=== PATIENT | male | born 1980 | race Caucasian/White ===

== ENCOUNTER 2017-07-13 08:53 | Emergency (ER) | payer SELFPAY ==
[~2017-07-13] VITALS: Ht 182.9 cm; Wt 63.5 kg
[~2017-07-13 08:53] MED LIST: LORTAB 5/500 501 TAB PO; PREDNISONE 10MG10 MG PO
--- NOTE | 2017-07-13 09:43 | Emergency Room Report ---
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 N Clinical Suspician of Infection? N Mental Status: 1 - Regular (Normal Baseline) Sepsis Risk:Low Sepsis Risk Have you (or family members/close friends) recently traveled outside the [place]? N If Yes, where/when: Have you had exposure to infectious disease within the past month? N TB? Other? Specify: Source patient, RN notes reviewed, family, RN/MD Exam Limitations no limitations Comment This is a 36-year-old male patient brought to the ER by police department, in custody, prior to incarceration, for medical clearance. Police was called by neighborhood noticed patient arriving around, topless, hallucinating, acting confused, all night long. Upon police arrival the patient is alleging that he has been watched by FBI agents on rooftops, that his neighbor has been spying on him, that there is to smoke coming out of his shoes, etc. ALLERGIES Coded Allergies: No Known Allergies (07/13/17) Home Medications Reported Medications No Known Home Medications History Medical History General CAD? No Angina: No [place]: No Hypertension? No Hyperlipidemia? No CHF? No DVT? No PE? No COPD? No Asthma? No Anemia? No GERD? No Gastric ulcers? No GI Bleed? No Hernia? No Thyroid Problems? No Hypothyroidism? No CVA? No Seizures? No Diabetes? No Renal Insuffiency? No End Stage Renal Disease? No UTI? No Stones? No GB Disease: No Nephritic Syndrome? No Asplenia? No Hepatitis? No Sickle Cell Disease? No Arthritis? No Migraines? No Cataracts? No Glaucoma? No MRSA? No HIV? No TB? No Anxiety? No Depression? No Cancer? No More? No Immunization Hx DT/Tetanus 1-4 YRS Surgical Hx Previous Surgery?Y ORAL SURGERY Social History Smoking Hx Smoker: Current Every Day Smoker Tobacco: Yes Type Cigarettes Packs/day < 1 Pack Alcohol Alcohol: Yes Review of Systems All Other Systems Reviewed and Negative Psychiatric/Neurological other (psychosis/hallucinations) Physical Exam Vital Signs Vital Signs Date Time Temp Pulse Resp B/P Pulse O2 O2 Flow FiO2 Ox Delivery Rate 07/13 1209 88 20 145/95 99 07/13 1128 89 20 142/85 98 07/13 1029 89 20 142/85 94 07/13 0950 62 20 153/100 100 07/13 0858 98.9 62 18 158/109 91 General Appearance normal appearance, WD/WN, no acute distress, however confused Eye Exam - bilateral eye normal exam, bilateral eye PERRL, bilateral eye EOMI Ear, Nose, Throat hearing grossly normal, normal ENT inspection Neck normal inspection, non-tender, supple, full range of motion Respiratory Status Yes: trachea midline, chest symmetrical, non tender chest. No: respiratory distress. Lung Sounds bilateral: normal breath sounds, lungs clear. 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 No Comment 11:30-vision stated that he does not know the date, the time, despite being aware of location and purpose of his emergency room visit at this time. There is no significant change in patient's mental status since arrival. 11:40-discussed with Dr. Gama, advised the patient's findings and presentation , declined admission, but recommended transferred to [facility] where both his medical and psychiatric needs can be addressed. 11:48-call initiated with transfer center regarding the patient's need to be transferred for additional care. 11:52am-case d/w Dr Walton, advised of patient's presentation findings, who recommended patient to be transferred to [facility]. 11:55am-case d/w Dr Gee, advised of the above. Dr. Gee recommended patient to be kept in our emergency room, continued IV hydration, and reassess him in 2 hours, for changes in mental status. If no better, he can be sent to assisted for a local facility, if no improvement, he will accept the transfer at that time. 12:15pm-care transferred to Dr. Vega at 12:15pm, informed of the above. Results/Orders Laboratory Tests 07/13/17 1015: Opiates Screen NEGATIVE, Urine Methadone Screen NEGATIVE, Barbiturates NEGATIVE, Phencyclidine Screen NEGATIVE, Amphetamines Screen POSITIVE H, Benzodiazepines Screen NEGATIVE, Cocaine Screen POSITIVE H, Marijuana (THC) Screen POSITIVE H, Urine Color DK YELLOW, Urine Appearance SL CLOUDY, Urine pH 6.0, Ur Specific [place] >= 1.030, Urine Protein 2+ H, Urine Ketones TRACE H, Urine Blood 1+ H , Urine Nitrate NEGATIVE, Urine Bilirubin 1+ H, Urine Urobilinogen 1.0, Ur Leukocyte Esterase NEGATIVE, Urine RBC OCC, Urine WBC 5-10, Urine Bacteria 2+, Hyaline Casts 10-20, Urine Mucus 2+, Urine Sperm 1+, Urine Glucose NEGATIVE 07/13/17 0950: TSH 0.39, Free T4 Index 9.5, Thyroxine (T4) 10.0, T3 Uptake 38, Alcohols 0 07/13/17 0950: Sodium 131 L, Potassium 3.7, Chloride 94 L, Carbon Dioxide 26, BUN 27 H, Creatinine 2.0 H, Estimated Creat Clear 46 L, Estimated GFR (MDRD) 38, Glucose 130 H, Calcium 10.0, Total Bilirubin 1.5 H, AST 57 H, ALT 38, Alkaline Phosphatase 95, Total Protein 9.5 H, Albumin 5.0, Globulin 4.5 H, Albumin/ Globulin Ratio 1.1, WBC 18.1 H, RBC 5.24, Hgb 16.9, Hct 48.9, MCV 93.3, RDW 12.6, Plt Count 268, MPV 7.2 L, Gran % 87.2 H, Gran # 15.8 H, Total Counted 100, Lymphocytes % 5.5 L, Monocytes % 6.2, Eosinophils % 0.8, Basophils % 0.3, Neutrophils 84 H, Lymphocytes (Manual) 7 L, Lymphocytes # 1.0, Monocytes ( Manual) 9, Monocytes # 1.1 H, Eosinophils # 0.1, Basophils # 0.1, Platelet Estimate NORMAL, PUBS MCHC 34.6, MCH 32.3 H, Salicylates 3.1, Acetaminophen 0 L Current Medication Orders Sig/Mary Start time Last Medication Dose Route Stop Time Status Admin Sodium Chloride 1,000 ML .Q1H1M 07/13 1215 AC 07/13 IV 07/13 1315 1212 Sodium Chloride 10 ML PRN PRN 07/13 1215 AC IV 07/14 1210 Sodium Chloride 1,000 ML .STK-MED ONE 07/13 1212 DC IV Sodium Chloride 1,000 ML .STK-MED ONE 07/13 1126 DC IV Sodium Chloride 1,000 ML .Q1H1M 07/13 1045 DC 07/13 IV 07/13 1145 1114 Sodium Chloride 10 ML PRN PRN 07/13 1045 AC IV 07/14 1031 Sodium Chloride 1,000 ML .Q1H1M 07/13 1030 DC 07/13 IV 07/13 1130 1026 Sodium Chloride 10 ML PRN PRN 07/13 1030 AC IV 07/14 1017 Sodium Chloride 1,000 ML .STK-MED ONE 07/13 1025 DC IV Sodium Chloride 10 ML PRN PRN 07/13 0915 AC IV 07/14 0910 Orders Procedure Date/time Status DIET-NOTHING BY MOUTH 07/[address] HEAD REQ 07/13 1018 Complete CULTURE, URINE 07/13 1015 Active DIFFERENTIAL-WBC 07/13 0950 Complete THYROID PANEL 2 (WITH TSH) 07/13 0920 Complete ALCOHOL 07/13 0920 Complete SALICYLATE 07/13 0919 Complete Acetaminophen 07/13 0919 Complete IV SALINE LOCK 07/13 0910 Active URINALYSIS/COMPLETE 07/13 0910 Complete DRUG ABUSE SCREEN (10) 07/13 0910 Complete CBC WITH AUTO DIFF 07/13 0910 Complete CHEM 12 PROFILE 07/13 0910 Complete XRAY/CT/US XRAY/CT/US CT head CT interpretation by discussed w/radiologist CT Results normal/NAD (no ICH), no fracture seen Departure Departure Time of Disposition 1153 Disposition DC/XFER from ER to [facility] Clinical Impression Primary Impression: Change in mental status Qualifiers: Altered mental status type: unspecified Qualified Code: R41.82 - Altered mental status, unspecified Secondary Impressions: Acute renal failure Qualifiers: Acute renal failure type: unspecified Qualified Code: N17.9 - Acute kidney failure, unspecified Amphetamine abuse Cocaine abuse Hallucinations Marijuana abuse Condition STABLE Prescriptions Current Visit Scripts No Known Home Medications ED Critical Care Critical Care No at 1218
--- NOTE | 2017-07-13 09:43 | Emergency Room Report ---
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 N Clinical Suspician of Infection? N Mental Status: 1 - Regular (Normal Baseline) Sepsis Risk:Low Sepsis Risk Have you (or family members/close friends) recently traveled outside the [place]? N If Yes, where/when: Have you had exposure to infectious disease within the past month? N TB? Other? Specify: Source patient, RN notes reviewed, family, RN/MD Exam Limitations no limitations Comment This is a 36-year-old male patient brought to the ER by police department, in custody, prior to incarceration, for medical clearance. Police was called by neighborhood noticed patient arriving around, topless, hallucinating, acting confused, all night long. Upon police arrival the patient is alleging that he has been watched by FBI agents on rooftops, that his neighbor has been spying on him, that there is to smoke coming out of his shoes, etc. ALLERGIES Coded Allergies: No Known Allergies (07/13/17) Home Medications Reported Medications No Known Home Medications History Medical History General CAD? No Angina: No [place]: No Hypertension? No Hyperlipidemia? No CHF? No DVT? No PE? No COPD? No Asthma? No Anemia? No GERD? No Gastric ulcers? No GI Bleed? No Hernia? No Thyroid Problems? No Hypothyroidism? No CVA? No Seizures? No Diabetes? No Renal Insuffiency? No End Stage Renal Disease? No UTI? No Stones? No GB Disease: No Nephritic Syndrome? No Asplenia? No Hepatitis? No Sickle Cell Disease? No Arthritis? No Migraines? No Cataracts? No Glaucoma? No MRSA? No HIV? No TB? No Anxiety? No Depression? No Cancer? No More? No Immunization Hx DT/Tetanus 1-4 YRS Surgical Hx Previous Surgery?Y ORAL SURGERY Social History Smoking Hx Smoker: Current Every Day Smoker Tobacco: Yes Type Cigarettes Packs/day < 1 Pack Alcohol Alcohol: Yes Review of Systems All Other Systems Reviewed and Negative Psychiatric/Neurological other (psychosis/hallucinations) Physical Exam Vital Signs Vital Signs Date Time Temp Pulse Resp B/P Pulse O2 O2 Flow FiO2 Ox Delivery Rate 07/13 1209 88 20 145/95 99 07/13 1128 89 20 142/85 98 07/13 1029 89 20 142/85 94 07/13 0950 62 20 153/100 100 07/13 0858 98.9 62 18 158/109 91 General Appearance normal appearance, WD/WN, no acute distress, however confused Eye Exam - bilateral eye normal exam, bilateral eye PERRL, bilateral eye EOMI Ear, Nose, Throat hearing grossly normal, normal ENT inspection Neck normal inspection, non-tender, supple, full range of motion Respiratory Status Yes: trachea midline, chest symmetrical, non tender chest. No: respiratory distress. Lung Sounds bilateral: normal breath sounds, lungs clear. 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 No Comment 11:30-vision stated that he does not know the date, the time, despite being aware of location and purpose of his emergency room visit at this time. There is no significant change in patient's mental status since arrival. 11:40-discussed with Dr. Gama, advised the patient's findings and presentation , declined admission, but recommended transferred to [facility] where both his medical and psychiatric needs can be addressed. 11:48-call initiated with transfer center regarding the patient's need to be transferred for additional care. 11:52am-case d/w Dr Walton, advised of patient's presentation findings, who recommended patient to be transferred to [facility]. 11:55am-case d/w Dr Gee, advised of the above. Dr. Gee recommended patient to be kept in our emergency room, continued IV hydration, and reassess him in 2 hours, for changes in mental status. If no better, he can be sent to prison for a local facility, if no improvement, he will accept the transfer at that time. 12:15pm-care transferred to Dr. Vega at 12:15pm, informed of the above. Results/Orders Laboratory Tests 07/13/17 1015: Opiates Screen NEGATIVE, Urine Methadone Screen NEGATIVE, Barbiturates NEGATIVE, Phencyclidine Screen NEGATIVE, Amphetamines Screen POSITIVE H, Benzodiazepines Screen NEGATIVE, Cocaine Screen POSITIVE H, Marijuana (THC) Screen POSITIVE H, Urine Color DK YELLOW, Urine Appearance SL CLOUDY, Urine pH 6.0, Ur Specific [place] >= 1.030, Urine Protein 2+ H, Urine Ketones TRACE H, Urine Blood 1+ H , Urine Nitrate NEGATIVE, Urine Bilirubin 1+ H, Urine Urobilinogen 1.0, Ur Leukocyte Esterase NEGATIVE, Urine RBC OCC, Urine WBC 5-10, Urine Bacteria 2+, Hyaline Casts 10-20, Urine Mucus 2+, Urine Sperm 1+, Urine Glucose NEGATIVE 07/13/17 0950: TSH 0.39, Free T4 Index 9.5, Thyroxine (T4) 10.0, T3 Uptake 38, Alcohols 0 07/13/17 0950: Sodium 131 L, Potassium 3.7, Chloride 94 L, Carbon Dioxide 26, BUN 27 H, Creatinine 2.0 H, Estimated Creat Clear 46 L, Estimated GFR (MDRD) 38, Glucose 130 H, Calcium 10.0, Total Bilirubin 1.5 H, AST 57 H, ALT 38, Alkaline Phosphatase 95, Total Protein 9.5 H, Albumin 5.0, Globulin 4.5 H, Albumin/ Globulin Ratio 1.1, WBC 18.1 H, RBC 5.24, Hgb 16.9, Hct 48.9, MCV 93.3, RDW 12.6, Plt Count 268, MPV 7.2 L, Gran % 87.2 H, Gran # 15.8 H, Total Counted 100, Lymphocytes % 5.5 L, Monocytes % 6.2, Eosinophils % 0.8, Basophils % 0.3, Neutrophils 84 H, Lymphocytes (Manual) 7 L, Lymphocytes # 1.0, Monocytes ( Manual) 9, Monocytes # 1.1 H, Eosinophils # 0.1, Basophils # 0.1, Platelet Estimate NORMAL, PUBS MCHC 34.6, MCH 32.3 H, Salicylates 3.1, Acetaminophen 0 L Current Medication Orders Sig/Mary Start time Last Medication Dose Route Stop Time Status Admin Sodium Chloride 1,000 ML .Q1H1M 07/13 1215 AC 07/13 IV 07/13 1315 1212 Sodium Chloride 10 ML PRN PRN 07/13 1215 AC IV 07/14 1210 Sodium Chloride 1,000 ML .STK-MED ONE 07/13 1212 DC IV Sodium Chloride 1,000 ML .STK-MED ONE 07/13 1126 DC IV Sodium Chloride 1,000 ML .Q1H1M 07/13 1045 DC 07/13 IV 07/13 1145 1114 Sodium Chloride 10 ML PRN PRN 07/13 1045 AC IV 07/14 1031 Sodium Chloride 1,000 ML .Q1H1M 07/13 1030 DC 07/13 IV 07/13 1130 1026 Sodium Chloride 10 ML PRN PRN 07/13 1030 AC IV 07/14 1017 Sodium Chloride 1,000 ML .STK-MED ONE 07/13 1025 DC IV Sodium Chloride 10 ML PRN PRN 07/13 0915 AC IV 07/14 0910 Orders Procedure Date/time Status DIET-NOTHING BY MOUTH 07/[address] HEAD REQ 07/13 1018 Complete CULTURE, URINE 07/13 1015 Active DIFFERENTIAL-WBC 07/13 0950 Complete THYROID PANEL 2 (WITH TSH) 07/13 0920 Complete ALCOHOL 07/13 0920 Complete SALICYLATE 07/13 0919 Complete Acetaminophen 07/13 0919 Complete IV SALINE LOCK 07/13 0910 Active URINALYSIS/COMPLETE 07/13 0910 Complete DRUG ABUSE SCREEN (10) 07/13 0910 Complete CBC WITH AUTO DIFF 07/13 0910 Complete CHEM 12 PROFILE 07/13 0910 Complete XRAY/CT/US XRAY/CT/US CT head CT interpretation by discussed w/radiologist CT Results normal/NAD (no ICH), no fracture seen Departure Departure Time of Disposition 1153 Disposition DC/XFER from ER to [facility] Clinical Impression Primary Impression: Change in mental status Qualifiers: Altered mental status type: unspecified Qualified Code: R41.82 - Altered mental status, unspecified Secondary Impressions: Acute renal failure Qualifiers: Acute renal failure type: unspecified Qualified Code: N17.9 - Acute kidney failure, unspecified Amphetamine abuse Cocaine abuse Hallucinations Marijuana abuse Condition STABLE Prescriptions Current Visit Scripts No Known Home Medications ED Critical Care Critical Care No at 1210
[2017-07-13 09:56] LABS: HEMOGLOBIN 16.9 g/dL (14.1-18.0); LYMPH % 5.5 % (10-50)
[2017-07-13 10:16] LABS: FREE THYROXIN INDEX 9.5 ug/dl (5.93-13.13)
[2017-07-13 10:20] LABS: URINE BLOOD 1+ (NEG)
[2017-07-13 10:35] LABS: NEUTROPHILS 84 % (42-76)
[2017-07-13 10:40] LABS: URINE BILIRUBIN - DIPSTICK 1+ (NEG)
[2017-07-13 10:49] LABS: AMPHETAMINES/METAMPHETAMINES POSITIVE ng/mL (<1000)
--- NOTE | 2017-07-13 11:17 | RADIOLOGY REPORT PS360 ---
CT HEAD WITHOUT CONTRAST CT BONE WINDOWS included ORDERING PHYSICIAN : Rodney Bolden MD PATIENT AGE: 36 years GENDER: Male PROCEDURE: Routine axial images headwithout contrast. Brain & bone windows HISTORY: HALLUCINATIONS COMPARISON: None for comparison FINDINGS: No acute intracranial findings. No hemorrhage. ( No mass effect or mass lesion. No subdural nor extra-axial collection. Ventricles & basal cisterns appear satisfactory. King & white matter patterns satisfactory. The posterior fossa appear satisfactory and unremarkable. The skull is intact. The limited visualized portions of the paranasal sinuses are fairly clear only noting mild mucosal thickening at the superior left maxillary sinus and posterior left ethmoid air cell region. Mastoid air cells, middle ear & IACs are unremarkable. IMPRESSION: No acute intracranial findings. Normal appearing brain on this noncontrast CT
[2017-07-13 12:50] LABS: LYMPH # 1.1 K/mm3 (0.7-4.5); LYMPH % 6.8 % (10-50)
[2017-07-13 12:58] LABS: HEMOGLOBIN 13.8 g/dL (14.1-18.0)
--- NOTE | 2017-07-13 14:08 | Emergency Room Report ---
History of Present Illness Time Seen by [id number] Presenting Problem in Triage Pt arrived:Walked Presenting Problem:MEDICAL CLEARANCE R/T POSSIBLE DRUG USE FOR [facility]. [facility] REPROTS PT WAS HALLUCINATING WHEN THEY FIRST ENCOUNTERED PT. 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 N Clinical Suspician of Infection? N Mental Status: 1 - Regular (Normal Baseline) Sepsis Risk:Low Sepsis Risk Have you (or family members/close friends) recently traveled outside the [place]? N If Yes, where/when: Have you had exposure to infectious disease within the past month? N TB? Other? Specify: 36 years old white male was brought by the police at 8:30 AM to [facility] ED because OF lesions and public intoxication. Patient had visual hallucinations and thought that a steam coming out of his shoes. Dr. Stevens the morning physician contacted zaheer Gee who recommended IV fluid therapy and observation. After 3 L of IV fluids the patient 's still hallucinating. He believes he is seeing his mother behind the curtain and there are letters wrote on his arms. I interviewed Mr. Mcqueen who reported that last time he was feeling normally was on Thursday at 3 PM and was drinking with his friend and he asked about his alcohol level was 0. He states that his friend might have given some drugs he does not recall their names. He asked about the drug levels which is not provided by the lab. The patient was alert and oriented 3 but he maintained to have visual and auditory hallucinations. His creatinine was down to 1.5 and his white count was 15. His lactic acid is 0.7. I will obtain blood cultures and was given IV antibiotics. His chest x-ray was normal and urinalysis was negative for infection. He does have a swollen LEFT lip and bad teeth. He lives by himself and he has not seen his mother for years, his brother is in drug rehab. Source patient, RN notes reviewed, family, police, old records, I reviewed old records done by Dr. Stevens from this morning. ALLERGIES Coded Allergies: No Known Allergies (07/13/17) Home Medications Reported Medications No Known Home Medications History Medical History General CAD? No Angina: No MT: No Hypertension? No Hyperlipidemia? No CHF? No DVT? No PE? No COPD? No Asthma? No Anemia? No GERD? No Gastric ulcers? No GI Bleed? No Hernia? No Thyroid Problems? No Hypothyroidism? No CVA? No Seizures? No Diabetes? No Renal Insuffiency? No End Stage Renal Disease? No UTI? No Stones? No GB Disease: No Nephritic Syndrome? No Asplenia? No Hepatitis? No Sickle Cell Disease? No Arthritis? No Migraines? No Cataracts? No Glaucoma? No MRSA? No HIV? No TB? No Anxiety? No Depression? No Cancer? No More? No Immunization Hx DT/Tetanus 1-4 YRS Surgical Hx Previous Surgery?Y ORAL SURGERY Social History Smoking Hx Smoker: Current Every Day Smoker Tobacco: Yes Type Cigarettes Packs/day < 1 Pack Alcohol Alcohol: Yes Review of Systems All Other Systems Reviewed and Negative Constitutional see HPI Eyes no symptoms reported ENT see HPI, dental caries (LEFT lower lip swelling), missing teeth. Respiratory no symptoms reported Cardiovascular no symptoms reported Gastrointestinal no symptoms reported Genitourinary no symptoms reported. Musculoskeletal no symptoms reported Skin see HPI (poison IV) Psychiatric/Neurological see HPI (hallucinations) Physical Exam Vital Signs Vital Signs Date Time Temp Pulse Resp B/P Pulse O2 O2 Flow FiO2 Ox Delivery Rate 07/13 1347 89 20 130/87 97 07/13 1209 88 20 145/95 99 07/13 1128 89 20 142/85 98 07/13 1029 89 20 142/85 94 07/13 0950 62 20 153/100 100 07/13 0858 98.9 62 18 158/109 91 Semi erect in resp distress withoput his shirt, his socks is covered in leaves. (Gary STEWART,[facility]) - WBC >12,000 or <4,000 or 10% bands? 2 or more SIRS Criteria Met? B/P:130/87 MAP:125 Creatinine >2.0? UA output<0.5ml/kg/hr for 2 hrs? Platelet count >100,000? Lactate >2.0mmol/1? INR >1.2 or PTT > than 60 sec? Evidence of Organ Dysfunction? Provider documented clinical suspician of infection? N Sepsis Criteria Count: 0 Sepsis Risk: Low Sepsis Risk General Appearance normal appearance, WD/WN Eye Exam - bilateral eye normal exam, bilateral eye PERRL, bilateral eye EOMI Ear, Nose, Throat dental caries, gingival disease, multiple broken teeth with dental caries, the LEFT lower lip is swollen and tender. Neck normal inspection, non-tender, supple, full range of motion, no midline spine tenderness Respiratory Status Yes: trachea midline, chest symmetrical, non tender chest. No: respiratory distress. Lung Sounds bilateral: normal breath sounds, lungs clear. Cardiovascular normal exam, regular rate/rhythm, no peripheral edema, no gallop, no JVD, no murmur, no rub, normal peripheral pulses Peripheral Pulses Pulses normal Yes Gastrointestinal normal bowel sounds, normal exam, non tender, soft, no organomegaly Back normal inspection, no CVA tenderness, no vertebral tenderness, no vertebral tenderness Extremities non-tender, normal range of motion, normal inspection Strength 5 Upper Ext (L), 5 Upper Ext (R), 5 Lower Ext (L), 5 Lower Ext (R) Male Genitalia normal genitalia, normal prostate, no hernia, circumcised Nurse present during exam? 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 also he is seeing letter wrote on his arms. Skin patient has a tattoo on his LEFT upper chest. Patient has multiple linear abrasions suggestive of poison mohinder exposure. Lymphatic no adenopathy Medical Decision Making LABS/Meds/Orders Pt receiving controlled substance in ED? No Results/Orders Laboratory Tests 07/13/17 1304: Troponin I < 0.02 07/13/17 1304: Lactic Acid 0.7 07/13/17 1243: Sodium 133 L, Potassium 3.5, Chloride 100, Carbon Dioxide 24, BUN 24 H, Creatinine 1.5 H, Estimated Creat Clear 61, Estimated GFR (MDRD) 53, Glucose 102, Calcium 7.9 L, WBC 15.9 H, RBC 4.27 L, Hgb 13.8 L, Hct 39.8 L, MCV 93.2, RDW 12.8, Plt Count 212, MPV 8.2, Gran % 85.3 H, Gran # 13.5 H, Lymphocytes % 6.8 L, Monocytes % 7.4, Eosinophils % 0.3, Basophils % 0.1, Lymphocytes # 1.1, Monocytes # 1.2 H, Eosinophils # 0.1, Basophils # 0.0, PUBS MCHC 34.4, MCH 32.1 H 07/13/17 1015: Opiates Screen NEGATIVE, Urine Methadone Screen NEGATIVE, Barbiturates NEGATIVE, Phencyclidine Screen NEGATIVE, Amphetamines Screen POSITIVE H, Benzodiazepines Screen NEGATIVE, Cocaine Screen POSITIVE H, Marijuana (THC) Screen POSITIVE H, Urine Color DK YELLOW, Urine Appearance SL CLOUDY, Urine pH 6.0, Ur Specific [place] >= 1.030, Urine Protein 2+ H, Urine Ketones TRACE H, Urine Blood 1+ H , Urine Nitrate NEGATIVE, Urine Bilirubin 1+ H, Urine Urobilinogen 1.0, Ur Leukocyte Esterase NEGATIVE, Urine RBC OCC, Urine WBC 5-10, Urine Bacteria 2+, Hyaline Casts 10-20, Urine Mucus 2+, Urine Sperm 1+, Urine Glucose NEGATIVE 07/13/17 0950: TSH 0.39, Free T4 Index 9.5, Thyroxine (T4) 10.0, T3 Uptake 38, Alcohols 0 07/13/17 0950: Sodium 131 L, Potassium 3.7, Chloride 94 L, Carbon Dioxide 26, BUN 27 H, Creatinine 2.0 H, Estimated Creat Clear 46 L, Estimated GFR (MDRD) 38, Glucose 130 H, Calcium 10.0, Total Bilirubin 1.5 H, AST 57 H, ALT 38, Alkaline Phosphatase 95, Total Protein 9.5 H, Albumin 5.0, Globulin 4.5 H, Albumin/ Globulin Ratio 1.1, WBC 18.1 H, RBC 5.24, Hgb 16.9, Hct 48.9, MCV 93.3, RDW 12.6, Plt Count 268, MPV 7.2 L, Gran % 87.2 H, Gran # 15.8 H, Total Counted 100, Lymphocytes % 5.5 L, Monocytes % 6.2, Eosinophils % 0.8, Basophils % 0.3, Neutrophils 84 H, Lymphocytes (Manual) 7 L, Lymphocytes # 1.0, Monocytes ( Manual) 9, Monocytes # 1.1 H, Eosinophils # 0.1, Basophils # 0.1, Platelet Estimate NORMAL, PUBS MCHC 34.6, MCH 32.3 H, Salicylates 3.1, Acetaminophen 0 L Current Medication Orders Sig/Mary Start time Last Medication Dose Route Stop Time Status Admin Ceftriaxone Sodium 0 .STK-MED ONE 07/13 1335 DC IV Sodium Chloride 50 ML .STK-MED ONE 07/13 1334 DC IV Ceftriaxone Sodium 1 GM ONCE ONE 07/13 1315 DC 07/13 Sodium Chloride 50 ML IV 07/13 1344 1337 Sodium Chloride 1,000 ML .Q1H1M 07/13 1215 DC 07/13 IV 07/13 1315 1212 Sodium Chloride 10 ML PRN PRN 07/13 1215 AC IV 07/14 1210 Sodium Chloride 1,000 ML .STK-MED ONE 07/13 1212 DC IV Sodium Chloride 1,000 ML .STK-MED ONE 07/13 1126 DC IV Sodium Chloride 1,000 ML .Q1H1M 07/13 1045 DC 07/13 IV 07/13 1145 1114 Sodium Chloride 10 ML PRN PRN 07/13 1045 AC IV 07/14 1031 Sodium Chloride 1,000 ML .Q1H1M 07/13 1030 DC 07/13 IV 07/13 1130 1026 Sodium Chloride 10 ML PRN PRN 07/13 1030 AC IV 07/14 1017 Sodium Chloride 1,000 ML .STK-MED ONE 07/13 1025 DC IV Sodium Chloride 10 ML PRN PRN 07/13 0915 AC IV 07/14 0910 Orders Procedure Date/time Status DIET-NOTHING BY MOUTH 07/13 L Active ELECTROCARDIOGRAM REQUEST 07/13 1326 Active TROPONIN I 07/13 1326 Complete CHEST(2 VIEWS-NOT PORTABLE) 07/13 1253 Active CULTURE, BLOOD 07/13 1253 Active LACTIC ACID 07/13 1253 Complete CBC WITH AUTO DIFF 07/13 1239 Complete BASIC METABOLIC PROFILE 07/[address] HEAD REQ 07/13 1018 Complete CULTURE, URINE 07/13 1015 Active DIFFERENTIAL-WBC 07/13 0950 Complete THYROID PANEL 2 (WITH TSH) 07/13 0920 Complete ALCOHOL 07/13 0920 Complete SALICYLATE 07/13 0919 Complete Acetaminophen 07/13 0919 Complete IV SALINE LOCK 07/13 0910 Active URINALYSIS/COMPLETE 07/13 0910 Complete DRUG ABUSE SCREEN (10) 07/13 0910 Complete CBC WITH AUTO DIFF 07/13 0910 Complete CHEM 12 PROFILE 07/13 0910 Complete 12 LEAD EKG-JAGDISH (INITIAL) 07/13 UNK Active CM/EKG CM/EKG EKG rate, NSR, rhythm, no evid. of ischemic chgs, no ectopy, normal QRS, normal NV, normal EKG, compared w/(date of old), no EKG for comparison, non- spec. ST/Twave chgs, ST elevation, ST depression, LBBB, RBBB, ectopy, abnormal Q waves Comments Normal sinus rhythm 72/m normal. QRS and T waves. No acute findings XRAY/CT/US XRAY/CT/US XRAY chest XR interpretation by reviewed by me Xray Results normal/NAD, no infiltrates Departure Departure Time of Disposition 1405 Disposition DC/XFER from ER to [facility] Clinical Impression Primary Impression: Altered mental status Qualifiers: Altered mental status type: unspecified Qualified Code: R41.82 - Altered mental status, unspecified Secondary Impressions: Acute renal failure Qualifiers: Acute renal failure type: unspecified Qualified Code: N17.9 - Acute kidney failure, unspecified Amphetamine abuse Cannabis abuse Cocaine abuse Hallucinations Condition STABLE Additional Instructions I followed up on the prior communication from Dr. Stevens this morning with Dr. Gee at [facility]. I updated him about his clinical and lap chemistry improvement and that he remained to be hallucinating. Dr. Gee accepted the patient for transfer to [facility]. The patient was agreeable for transfere. The patient was transported in a hemodynamically stable condition. Discharge Counseling Counseled pt/family regarding diagnosis, follow up needs Prescriptions Current Visit Scripts No Known Home Medications ED Critical Care Critical Care No If Critical Care minutes are documented, the time involved in the performance of seperately reportable procedures was not counted toward critical care time documented. I directly delivered medical care to this critically ill and/or injured patient. Timely evaluation and treatment was necessary to address the significant organ system(s) dysfunction present in this patient. at 140
[2017-07-13 14:26] VITALS: BP 148/94
--- NOTE | 2017-07-13 23:47 | RADIOLOGY REPORT PS360 ---
CHEST(2 VIEWS-NOT PORTABLE) HISTORY: COUGH Patient Age: 36 years: Male Ordering Physician: Quintin Vega MD TECHNIQUE: PA and lateral chest COMPARISON :None available FINDINGS no focal pneumonia. Central markings upper normal prominence. Question minor chronic changes bilateral.. Heart , nestor and mediastinal structures satisfactory. Arthritic changes right AC joint. Chest wall intact. T-spine intact with mild dextrocurvature. IMPRESSION: Nothing definitely acute.
== END 2017-07-13 15:12 | disposition short-term general hospital (02) ==
LOC: ER 08:53
PROVIDERS: Emergency Medicine
DX: R41.82 Altered mental status, unspecified (principal); N17.9 Acute kidney failure, unspecified; F14.10 Cocaine abuse, uncomplicated; F15.10 Other stimulant abuse, uncomplicated; R44.1 Visual hallucinations; F12.10 Cannabis abuse, uncomplicated; K02.9 Dental caries, unspecified; K05.10 Chronic gingivitis, plaque induced; F17.210 Nicotine dependence, cigarettes, uncomplicated